=== PATIENT | male | born 1960 | race Caucasian/White ===

== ENCOUNTER 2022-03-15 09:45 | Outpatient (CLI) | payer OTHER, SELFPAY ==
[2022-03-15 14:11] LABS: SARS PCR* Negative SARS-CoV-2 (Negative)
== END 2022-03-15 09:46 | disposition home or self-care (01) ==
LOC: KYNREF 09:45
PROVIDERS: PCP Family Medicine; Visit Provider Nurse Practitioner Family
DX: Z20.822 Contact with and (suspected) exposure to COVID-19 (principal); J11.1 Influenza due to unidentified influenza virus with other respiratory manifestations
CPT/HCPCS: 87635

== ENCOUNTER 2022-12-29 15:47 | Outpatient (CLI) | payer OTHER, SELFPAY ==
--- NOTE | 2022-12-29 16:00 | CRLHL7_ITS ---
For Patients: As a result of the Century Cures Act, medical imaging exams and procedure reports are released immediately into your electronic medical record. You may view this report before your referring provider. If you have questions, please contact your health care provider. INDICATION: Leg pain and swelling. TECHNIQUE: Ultrasound venous duplex lower right extremity. Compression venous exam was performed using nair-scale, color Doppler, and spectral Doppler analysis. COMPARISON: None. FINDINGS: Deep veins: Sonographic imaging demonstrates the right common femoral, deep femoral, superficial femoral, popliteal, posterior tibial and the contralateral right common femoral veins to be fully compressible with normal color Doppler blood flow. Superficial veins: Greater saphenous vein is fully compressible. No popliteal cyst. IMPRESSION: Normal right lower extremity venous ultrasound, no sign of deep venous thrombosis. Dictated by Osmin Anthony MD @ 12/29/2022 5:17:10 PM (Electronically Signed)
== END 2022-12-29 15:48 | disposition home or self-care (01) ==
PROVIDERS: PCP Nurse Practitioner Family; Visit Provider Nurse Practitioner Family
DX: M79.661 Pain in right lower leg (principal)
CPT/HCPCS: 93971

== ENCOUNTER 2023-01-12 12:24 | Outpatient (RCR) | payer OTHER, SELFPAY ==
--- NOTE | 2023-01-12 13:52 | PT.OPEX ---
[facility] Eval PT [facility] Outpatient Eval Start: 01/12/23 09:59 Freq: Status: Active Protocol: Document 01/12/23 09:59 CRP (Rec: 01/12/23 13:49 CRP [id number]) E-signed By Tello Mendez PT Physical Therapy Outpatient Evaluation Insurance Information Insurance Name [employer] Medical Diagnosis Right Calf Pain Subjective Subjective Pt is c/o R calf pain. This episode started about 3 weeks ago running. Has had this off and on though over the years. More recently was getting better but then attempted moving off to the side quickly on stairs to get out of someone's way and restrained the calf. This caused significant pain and he was limping for a couple of days. He is now about 75% improved. He did jog yesterday but at a very slow pace about 25 minutes. He does note that just prior to his pain episode he was doing a lot of hiking on vacation. This included a lot of inclined work. He is wondering if he over did it with his calf. Pt work at a desk job. Pt would like to get back to running. Usually does about a 5k over about 27 minutes or so. He notes that when he attempts to increase his pace or his time his calf will end up aggravated. Pain Comments 05/14 Current Work Status Movie Producer Objective Range of Motion Trunk ROM WNL Bilat hip ROM WNL Ankle PROM in all planes is WNL DF test against wall shows about 1 cm difference L to R Strength MMT Ankle DF WNL bilat PF 4/5 on the R. L WNL INv WNL bilat Ev WNL bilat great toe ext 4-/5 on R - does have mild/mod hallux valgus Hip WNL throughout Trunk flex WNL Palpation Pain palpable From mid line calf to to med belly of gastroc Other/Pertinent Objective Shows mild/mod calf atrophy on R Slump and SLR shows signs of adverse neurodynamics Assessment Assessment/Impression Pt presents to the clinic with acute on chronic R calf strain. Pts presentation is characterized by slight loss of DF ROM, PF weakness with calf atrophy, poor tolerance to plyometric loading of the R lower leg and adverse neurodynamics. Skilled PT is necessary to safely incorporate ther ex, nm re, ther act, manual ther and pt education to decrease pain and restore functional abilities. Primary Functional Limitations Walking Quick turns Running Plan of Care Rehabilitation Potential Excellent Physical Therapy Goals 1. Pt will be 100% independent with HEP in 6 weeks 2. Pt will walk without any sense of sxs in 8 weeks 3. Pt will return to 5k running without pain in 12 weeks Coordination/Communication With Referral Source Treatment Plan/Direct Interventions Gait Training,Joint Mobilization,Manual Therapy, Neuromuscular Re-ed,Self-Care/ Home Management,Therapeutic Activities,Therapeutic Exercises Frequency/Duration 1x/wk to every other week for 12 weeks Patient Will Be Discharged From Therapy Completion of LTG(s),Skills Plateau,Independent w/HEP, Independently Progressing Evaluation Billing Untimed Code Treatment Minutes 30 Complexity Moderate Certification Information Physician Comment/Change : Physician NPI Number #
== END 2023-05-12 23:59 | disposition home or self-care (01) ==
PROVIDERS: PCP Family Medicine; Visit Provider Nurse Practitioner Family
DX: M79.661 Pain in right lower leg (principal); Z51.89 Encounter for other specified aftercare
CPT/HCPCS: 97110; 97162